=== PATIENT | female | born 1945 | race American Indian/Alaskan Native ===

== ENCOUNTER 2017-03-28 18:06 | Observation (INO) | payer OTHER ==
[2017-03-28] MEDS ORDERED: NITRO-BID 2% TP ONE (20:28)
[2017-03-28] MEDS ORDERED: NACL 0.9% 1000 ML 1,000 ML IV ONE (20:30)
[2017-03-28 20:40] LABS: Basophils # (Auto) 0.1 K/mm3 (0.0-0.1); Basophils % (Auto) 1.1 % (0.0-1.8); Eosinophils # (Auto) 0.1 K/mm3 (0.0-0.4); Eosinophils % (Auto) 2.7 % (0.0-4.3); Hemoglobin 11.1 gm/dl (10.1-14.3); Lymphocytes # (Auto) 2.4 K/mm3 (1.2-5.4); Lymphocytes % (Auto) 49.3 % (13.4-35.0); Mean Corpuscular HGB Conc 34 % (30-34); Mean Corpuscular Hemoglobin 32 pg (28-32); Mean Corpuscular Volume 94 fl (79-97); Monocytes # (Auto) 0.4 K/mm3 (0.0-0.8); Monocytes % (Auto) 7.4 % (0.0-7.3); Platelet Count 181 K/mm3 (140-440); Red Blood Count 3.53 M/mm3 (3.65-5.03); Red Cell Distribution Width 15.4 % (13.2-15.2)
--- NOTE | 2017-03-28 20:53 | Emergency Department Report ---
ED Chest Pain HPI - General Chief Complaint: Chest Pain Stated Complaint: CHEST PAIN Time Seen by Provider: 03/28/17 20:24 Source: EMS Mode of arrival: Stretcher Limitations: No Limitations - History of Present Illness Initial Comments: 71YO FEMALE WITH C/O RETROSTERNAL CHEST PAIN THAT BEGAN TODAY AFTER SHE HEARD THAT HER SISITER HAD BEEN FOUND . SHE HAD 10/10 PAIN ASSOCIATED WITH NO OTHER SYMPTOMS.DENIES N/V/RADIATION TO BACK OR ARMS MD Complaint: chest pain Onset: during rest Pain Location: substernal Pain Radiation: none - Related Data Allergies Allergy/AdvReac Type Severity Reaction Status Date / Time atorvastatin Allergy Anaphylaxis Verified 03/28/17 19:44 buspirone Allergy Anaphylaxis Verified 03/28/17 19:44 losartan Allergy Anaphylaxis Verified 03/28/17 19:44 naproxen Allergy Anaphylaxis Verified 03/28/17 19:44 Penicillins Allergy Anaphylaxis Verified 03/28/17 19:42 clopidogrel [From Plavix] AdvReac Anaphylaxis Verified 03/28/17 19:44 Heart Score - HEART Score History: Moderately suspicious EKG: Non-specific Age: > 65 Risk factors: > 3 risk factors or hx of atherosclerotic disease Troponin: < normal limit HEART Score: 6 ED Review of Systems ROS: Stated complaint: CHEST PAIN Other details as noted in HPI ED Past Medical Hx - Past Medical History Previous Medical History?: Yes Hx Hypertension: Yes Hx Diabetes: Yes Additional medical history: Stent X3 - Surgical History Past Surgical History?: Yes Additional Surgical History: Stent placement ED Physical Exam - General Limitations: No Limitations ED Course Vital Signs 03/28/17 03/28/17 03/28/17 19:02 19:15 19:30 Temperature Pulse Rate 63 Respiratory 11 L Rate Blood Pressure 122/68 O2 Sat by Pulse 100 99 100 Oximetry 03/28/17 03/28/17 03/28/17 19:36 19:38 19:40 Temperature 98 F Pulse Rate 62 60 61 Respiratory 11 L 10 L 8 L Rate Blood Pressure 187/70 187/70 187/70 O2 Sat by Pulse 100 99 99 Oximetry 03/28/17 03/28/17 03/28/17 19:42 19:44 19:45 Temperature Pulse Rate 62 59 L 60 Respiratory 10 L 12 11 L Rate Blood Pressure 187/70 187/70 173/65 O2 Sat by Pulse 99 100 99 Oximetry 1203/28/17 03/28/17 19:46 19:48 19:50 Temperature Pulse Rate 59 L 62 59 L Respiratory 9 L 9 L 10 L Rate Blood Pressure 173/65 173/65 173/65 O2 Sat by Pulse 99 99 99 Oximetry 03/28/17 03/28/17 03/28/17 19:52 19:54 19:56 Temperature Pulse Rate 59 L 59 L 59 L Respiratory 8 L 10 L 15 Rate Blood Pressure 173/65 173/65 173/65 O2 Sat by Pulse 99 99 99 Oximetry 03/28/17 03/28/17 03/28/17 19:58 20:00 20:02 Temperature Pulse Rate 62 63 61 Respiratory 18 13 14 Rate Blood Pressure 173/65 173/65 191/73 O2 Sat by Pulse 99 99 99 Oximetry 03/28/17 03/28/17 03/28/17 20:04 20:06 20:08 Temperature Pulse Rate 62 61 61 Respiratory 9 L 10 L 11 L Rate Blood Pressure 191/73 191/73 191/73 O2 Sat by Pulse 99 99 98 Oximetry 03/28/17 03/28/17 03/28/17 20:10 20:12 20:14 Temperature Pulse Rate 63 61 61 Respiratory 12 14 13 Rate Blood Pressure 191/73 191/73 191/73 O2 Sat by Pulse 98 98 99 Oximetry 03/28/17 03/28/17 03/28/17 20:15 20:16 20:18 Temperature Pulse Rate 66 63 63 Respiratory 12 11 L 12 Rate Blood Pressure 197/77 197/77 197/77 O2 Sat by Pulse 97 98 99 Oximetry 03/28/17 03/28/17 03/28/17 20:20 20:22 20:24 Temperature Pulse Rate 65 62 62 Respiratory 18 13 12 Rate Blood Pressure 197/77 197/77 197/77 O2 Sat by Pulse 100 99 98 Oximetry 03/28/17 03/28/17 03/28/17 20:26 20:28 20:30 Temperature Pulse Rate 60 59 L 60 Respiratory 15 13 11 L Rate Blood Pressure 197/77 197/77 197/77 O2 Sat by Pulse 98 98 98 Oximetry 03/28/17 03/28/17 03/28/17 20:32 20:34 20:36 Temperature Pulse Rate 61 61 61 Respiratory 9 L 11 L 13 Rate Blood Pressure 188/69 188/69 188/69 O2 Sat by Pulse 98 98 98 Oximetry 03/28/17 03/28/17 03/28/17 20:38 20:40 20:42 Temperature Pulse Rate 61 60 59 L Respiratory 12 9 L 12 Rate Blood Pressure 188/69 188/69 188/69 O2 Sat by Pulse 98 98 98 Oximetry 03/28/17 03/28/17 03/28/17 20:44 20:45 20:46 Temperature Pulse Rate 61 59 L 60 Respiratory 10 L 13 13 Rate Blood Pressure 188/69 178/67 178/67 O2 Sat by Pulse 98 96 97 Oximetry 03/28/17 03/28/17 03/28/17 20:48 20:50 20:52 Temperature Pulse Rate 62 61 62 Respiratory 13 10 L 9 L Rate Blood Pressure 178/67 178/67 178/67 O2 Sat by Pulse 98 98 98 Oximetry 03/28/17 03/28/17 03/28/17 20:57 21:13 21:43 Temperature Pulse Rate 62 Respiratory 18 18 18 Rate Blood Pressure 178/67 O2 Sat by Pulse 98 Oximetry 03/28/17 03/28/17 03/28/17 22:51 22:53 22:55 Temperature Pulse Rate 61 62 60 Respiratory 12 12 12 Rate Blood Pressure 179/67 179/67 179/67 O2 Sat by Pulse 97 98 98 Oximetry 03/28/17 03/28/17 03/28/17 22:57 22:59 23:00 Temperature Pulse Rate 60 62 63 Respiratory 12 10 L 14 Rate Blood Pressure 179/67 179/67 174/60 O2 Sat by Pulse 98 98 98 Oximetry 03/28/17 03/28/17 03/28/17 23:01 23:03 23:05 Temperature Pulse Rate 61 61 62 Respiratory 13 9 L 13 Rate Blood Pressure 174/60 189/74 189/74 O2 Sat by Pulse 98 98 97 Oximetry 03/28/17 03/28/17 03/28/17 23:07 23:09 23:11 Temperature Pulse Rate 60 58 L 59 L Respiratory 12 10 L 10 L Rate Blood Pressure 189/74 189/74 189/74 O2 Sat by Pulse 98 98 98 Oximetry 03/28/17 03/28/17 03/28/17 23:13 23:15 23:17 Temperature Pulse Rate 61 59 L 61 Respiratory 13 14 12 Rate Blood Pressure 189/74 164/55 164/55 O2 Sat by Pulse 98 96 98 Oximetry 03/28/17 03/28/17 03/28/17 23:19 23:21 23:23 Temperature Pulse Rate 59 L 59 L 60 Respiratory 12 16 10 L Rate Blood Pressure 164/55 164/55 164/55 O2 Sat by Pulse 98 97 98 Oximetry 03/28/17 03/28/17 03/28/17 23:25 23:27 23:29 Temperature Pulse Rate 59 L 59 L 59 L Respiratory 11 L 14 13 Rate Blood Pressure 164/55 164/55 164/55 O2 Sat by Pulse 98 98 98 Oximetry 03/28/17 03/28/17 03/28/17 23:31 23:33 23:35 Temperature Pulse Rate 59 L 61 68 Respiratory 12 12 14 Rate Blood Pressure 178/66 178/66 178/66 O2 Sat by Pulse 97 98 98 Oximetry 03/28/17 03/28/17 03/28/17 23:37 23:39 23:41 Temperature Pulse Rate 65 64 66 Respiratory 15 14 12 Rate Blood Pressure 178/66 178/66 178/66 O2 Sat by Pulse 98 98 98 Oximetry 03/28/17 03/28/17 03/28/17 23:43 23:45 23:47 Temperature Pulse Rate 71 69 66 Respiratory 16 10 L 11 L Rate Blood Pressure 178/66 196/80 196/80 O2 Sat by Pulse 99 96 97 Oximetry 03/28/17 03/28/17 03/28/17 23:49 23:51 23:53 Temperature Pulse Rate 64 63 64 Respiratory 11 L 9 L 8 L Rate Blood Pressure 196/80 196/80 196/80 O2 Sat by Pulse 97 98 98 Oximetry 03/28/17 03/28/17 03/28/17 23:55 23:57 23:59 Temperature Pulse Rate 64 65 65 Respiratory 10 L 10 L 11 L Rate Blood Pressure 196/80 196/80 196/80 O2 Sat by Pulse 98 97 97 Oximetry 03/29/17 03/29/17 03/29/17 00:00 00:01 00:03 Temperature Pulse Rate 65 63 64 Respiratory 12 11 L 12 Rate Blood Pressure 188/81 188/81 188/81 O2 Sat by Pulse 94 98 97 Oximetry 03/29/17 03/29/17 03/29/17 00:05 00:07 00:09 Temperature Pulse Rate 62 62 62 Respiratory 11 L 13 13 Rate Blood Pressure 188/81 188/81 188/81 O2 Sat by Pulse 98 98 98 Oximetry 03/29/17 03/29/17 03/29/17 00:11 00:13 00:15 Temperature Pulse Rate 66 69 65 Respiratory 12 12 13 Rate Blood Pressure 188/81 188/81 194/85 O2 Sat by Pulse 98 98 96 Oximetry 03/29/17 03/29/17 03/29/17 00:17 00:19 00:21 Temperature Pulse Rate 63 63 63 Respiratory 12 10 L 12 Rate Blood Pressure 194/85 194/85 194/85 O2 Sat by Pulse 97 97 97 Oximetry 03/29/17 03/29/17 00:23 00:25 Temperature Pulse Rate 68 65 Respiratory 13 13 Rate Blood Pressure 194/85 194/85 O2 Sat by Pulse 99 98 Oximetry - Reevaluation(s) Reevaluation #1: 03/29/17 00:39 PT WITH HEADACEH EVEN AFTER TORADOL. RESULTS DISCUSSED AND MORPHINE GIVEN. WAS WAITING FOR THE HOSPITALIST TO WRITE ADMISSION ORDERS. GREGORIO score - Gregorio Score Age > 65: (1) Yes Aspirin use within the Past 7 Days: (1) Yes 3 or more CAD Risk Factors: (1) Yes 2 or more Angina events in past 24 hrs: (0) No Known CAD with more than 50% Stenosis: (0) No Elevated Cardiac Markers: (0) No ST Deviation Greater than 0.5mm: (0) No GREGORIO Score: 3 ED Medical Decision Making - Lab Data Result diagrams: 03/28/17 20:02 03/28/17 20:02 - EKG Data -: EKG Interpreted by Me EKG shows normal: sinus rhythm, axis, intervals, QRS complexes, ST-T waves Rate: normal (65) - EKG Data Interpretation: LVH (LAEFT ATRIAL ENLARGEMENT) - Radiology Data Radiology results: report reviewed, image reviewed (CXR; NEGATIVE) Critical care time in (mins) excluding proc time.: 30 Critical care attestation.: If time is entered above; I have spent that time in minutes in the direct care of this critically ill patient, excluding procedure time. [facility] ED Disposition Clinical Impression: Unstable angina, Uncontrolled hypertension Disposition: DC- OP ADMIT IP TO THIS HOSP Is pt being admited?: Yes Does the pt Need Aspirin: No Condition: Serious Instructions: Angina (ED), Hypertension (ED) Referrals: DICRISTINA,PADMA, MD [Primary Care Provider] - 3-5 Days Time of Disposition: 00:40 (DR MEADOWS PAGED AND SHE WILL ADMIT THE PT TO THE HOSPITAL)
[2017-03-28] MEDS ORDERED: TORADOL ONE (21:06)
[2017-03-28] MEDS ORDERED: TORADOL IV ONE (21:09)
--- NOTE | 2017-03-28 21:13 | XRay Report ---
FINAL REPORT PROCEDURE: XR CHEST 1V AP TECHNIQUE: Chest radiograph anteroposterior view. CPT 22477 HISTORY: Chest Pain COMPARISON: No prior studies are available for comparison. FINDINGS: Heart: Normal. Mediastinum/Vessels: Normal. Lungs/Pleural space: No infiltrate, effusion, or pneumothorax. Bony thorax: No acute osseous abnormality. Life support devices: None. IMPRESSION: No radiographic evidence of acute cardiopulmonary abnormality.
[2017-03-28 21:54] LABS: Albumin 3.5 g/dL (3.9-5)
[2017-03-28] MEDS ORDERED: MORPHINE IV ONE (23:03)
[2017-03-28] MEDS ORDERED: ZOFRAN IV ONE (23:04)
[2017-03-29] MEDS ORDERED: AMBIEN PO PRN (01:08)
[2017-03-29] MEDS ORDERED: ZOFRAN IV PRN (01:08)
[2017-03-29] MEDS ORDERED: TYLENOL PO PRN (01:08)
[2017-03-29] MEDS ORDERED: SODIUM CHLORIDE FLUSH SYRINGE 10 ML IV PRN (01:08)
[2017-03-29] MEDS ORDERED: NITROSTAT SL PRN (01:08)
[2017-03-29] MEDS ORDERED: PROVENTIL IH PRN (01:08)
[2017-03-29] MEDS ORDERED: MILK OF MAGNESIA PO PRN (01:08)
[2017-03-29] MEDS ORDERED: DULCOLAX PR PRN (01:08)
--- NOTE | 2017-03-29 01:18 | History and Physical Report ---
History of Present Illness Date of examination: 03/29/17 Chief complaint: chest pain History of present illness: 71YO FEMALE WITH C/O RETROSTERNAL CHEST PAIN THAT BEGAN TODAY AFTER SHE HEARD THAT HER SISTER HAD BEEN FOUND . SHE HAD 10/10 PAIN ASSOCIATED WITH NO OTHER SYMPTOMS.DENIES N/V/RADIATION TO BACK OR ARMS She has coronary artery disease status post PCI 3 times. Follows with her [place] fixed route operator last visit with her fixed route operator was in November 2016 and everything was okay at that time. She denies any left heart catheterization echocardiogram or stress test since 2014. She denies any headache nausea vomiting tingling numbness on weakness. Denies any shortness of breath or palpitations no other GI or symptoms. Past History Past Medical History: CAD, hypertension Past Surgical History: Other (PCI) Social history: lives with family, full code. denies: smoking, alcohol abuse Family history: no significant family history Medications and Allergies Allergies Allergy/AdvReac Type Severity Reaction Status Date / Time atorvastatin Allergy Anaphylaxis Verified 03/28/17 19:44 buspirone Allergy Anaphylaxis Verified 03/28/17 19:44 losartan Allergy Anaphylaxis Verified 03/28/17 19:44 naproxen Allergy Anaphylaxis Verified 03/28/17 19:44 Penicillins Allergy Anaphylaxis Verified 03/28/17 19:42 clopidogrel [From Plavix] AdvReac Anaphylaxis Verified 03/28/17 19:44 Active Meds: Active Medications Acetaminophen (Tylenol) 650 mg PO Q4H PRN PRN Reason: Pain MILD(1-3)/Fever >100.5/GONZALEZ Albuterol (Proventil) 2.5 mg IH Q4HRT PRN PRN Reason: Shortness Of Breath Aspirin (Ecotrin) 325 mg PO QDAY BRYANT Bisacodyl (Dulcolax) 10 mg CO QDAY PRN PRN Reason: Constipation unrelieved by MOM Enoxaparin Sodium (Lovenox) 40 mg SUB-Q QDAY BRYANT Famotidine (Pepcid) 20 mg PO BID BRYANT Sodium Chloride (Nacl 0.45% 1000 Ml) 1,000 mls @ 75 mls/hr IV DIRECT BRYANT Magnesium Hydroxide (Milk Of Magnesia) 30 ml PO Q4H PRN PRN Reason: Constipation Nitroglycerin (Nitrostat) 0.4 mg SL Q5M PRN PRN Reason: Chest Pain Ondansetron HCl (Zofran) 4 mg IV Q8H PRN PRN Reason: N/V unrelieved by Reglan Oxycodone/Acetaminophen (Percocet 5/325) 1 tab PO Q6H PRN PRN Reason: Pain, Moderate (4-6) Sodium Chloride (Sodium Chloride Flush Syringe 10 Ml) 10 ml IV PRN PRN PRN Reason: LINE FLUSH Zolpidem Tartrate (Ambien) 5 mg PO QHS PRN PRN Reason: Insomnia Review of Systems All systems: negative Exam - Physical Exam Narrative exam: General: the patient is awake alert oriented to time place and person. no evidence of acute distress HEENT: Head is atraumatic normocephalic,. Pupils equal round reactive to light and accommodation, extraocular movements intact. Oral mucosa moist. Oropharynx clear. No pharyngeal erythema or tonsillar exudate. Neck: Supple no JVD no thyromegaly or lymphadenopathy. Heart: Regular rate and rhythm no murmurs or gallops. S1 and S2 normal. PMI not displaced. Lungs: Clear to auscultation bilaterally. No rales rhonchi wheezing. Nonlabored breathing. Normal chest wall expansion. Abdomen: Soft, nondistended, and nontender. Normoactive bowel sounds. No hepatosplenomegaly. No abdominal masses or bruit appreciated. Extremities: No cyanosis/clubbing/ edema. Musculoskeletal: Normal range of movement all joints. No obvious deformity or tenderness to palpation. Normal muscle tone. Back: Normal alignment. No step-off. No midline or paraspinal tenderness. No CVA tenderness. Neurological: Grossly intact and nonfocal. No cerebellar signs. Cranial nerves II-12 grossly intact. Strength 5 out of 5 all 4 extremities. Sensations grossly intact. Skin: Warm and dry no rashes or bruises. Psychiatric: Normal mood. Appropriate affect and good insight and judgment. Vascular system: No lymphadenopathy. Distal pulses 2+ bilaterally. - Constitutional Vitals: Temp Pulse Resp BP Pulse Ox 98 F 65 13 194/85 98 03/28/17 19:38 03/29/17 00:25 03/29/17 00:25 03/29/17 00:25 03/29/17 00:25 Results - Labs CBC & Chem 7: 03/28/17 20:02 03/28/17 20:02 Labs: Laboratory Last Values WBC 4.9 K/mm3 (4.5-11.0) 03/28/17 20:02 RBC 3.53 M/mm3 (3.65-5.03) L 03/28/17 20:02 Hgb 11.1 gm/dl (10.1-14.3) 03/28/17 20:02 Hct 33.0 % (30.3-42.9) 03/28/17 20:02 MCV 94 fl (79-97) 03/28/17 20:02 MCH 32 pg (28-32) 03/28/17 20:02 MCHC 34 % (30-34) 03/28/17 20:02 RDW 15.4 % (13.2-15.2) H 03/28/17 20:02 Plt Count 181 K/mm3 (140-440) 03/28/17 20:02 Lymph % (Auto) 49.3 % (13.4-35.0) H 03/28/17 20:02 [place] % (Auto) 7.4 % (0.0-7.3) H 03/28/17 20:02 Eos % (Auto) 2.7 % (0.0-4.3) 03/28/17 20:02 Baso % (Auto) 1.1 % (0.0-1.8) 03/28/17 20:02 Lymph # 2.4 K/mm3 (1.2-5.4) 03/28/17 20:02 [place] # 0.4 K/mm3 (0.0-0.8) 03/28/17 20:02 Eos # 0.1 K/mm3 (0.0-0.4) 03/28/17 20:02 Baso # 0.1 K/mm3 (0.0-0.1) 03/28/17 20:02 Seg Neutrophils % 39.5 % (40.0-70.0) L 03/28/17 20:02 Seg Neutrophils # 1.9 K/mm3 (1.8-7.7) 03/28/17 20:02 Sodium 145 mmol/L (137-145) 03/28/17 20:02 Potassium 4.5 mmol/L (3.6-5.0) 03/28/17 20:02 Chloride 106.0 mmol/L (98-107) 03/28/17 20:02 Carbon Dioxide 27 mmol/L (22-30) 03/28/17 20:02 Anion Gap 17 mmol/L 03/28/17 20:02 BUN 18 mg/dL (7-17) H 03/28/17 20:02 Creatinine 1.3 mg/dL (0.7-1.2) H 03/28/17 20:02 Estimated GFR 49 ml/min 03/28/17 20:02 BUN/Creatinine Ratio 14 % 03/28/17 20:02 Glucose 96 mg/dL (65-100) 03/28/17 20:02 Calcium 9.0 mg/dL (8.4-10.2) 03/28/17 20:02 Total Bilirubin 0.20 mg/dL (0.1-1.2) 03/28/17 20:02 AST 16 units/L (5-40) 03/28/17 20:02 ALT 8 units/L (7-56) 03/28/17 20:02 Alkaline Phosphatase 48 units/L (35-129) 03/28/17 20:02 Total Creatine Kinase 50 units/L (30-135) 03/28/17 20:02 CK-MB (CK-2) 1.0 ng/mL (0.0-4.0) 03/28/17 20:02 CK-MB (CK-2) Rel Index 2.0 (0-4) 03/28/17 20:02 Troponin T < 0.010 ng/mL (0.00-0.029) 03/28/17 20:02 Total Protein 6.0 g/dL (6.3-8.2) L 03/28/17 20:02 Albumin 3.5 g/dL (3.9-5) L 03/28/17 20:02 Albumin/Globulin Ratio 1.4 % 03/28/17 20:02 - Imaging and Cardiology Imaging and Cardiology: EKG showing normal sinus rhythm. Positive T waves. Nonspecific ST-T wave changes but negative for acute ischemia or other arrhythmia Assessment and Plan Assessment and plan: Assessment and plan - * Chest pain * Malignant hypertension * Coronary artery disease status post PCI * CKD stage III - Baseline creatinine unknown Plan - Admitted to medical floor with telemetry for 24-hour observation Serial cardiac enzymes Cardiology consultation in a.m. for further evaluation and management recommendations Patient's home medications unknown at present, we will start her on low-dose beta edward in view of her borderline low heart rate. Give when necessary hydralazine. We will also start her on low-dose lisinopril. Monitor blood pressures closely IV fluids Monitor renal function with IV fluids avoid all nephrotoxins and NSAIDs renally dose all medications Monitor CBC and electrolytes replace electrolytes when necessary as per protocol DVT GI prophylaxis as ordered monitor and follow the patient closely VTE prophylaxis?: Chemical, Mechanical Plan of care discussed with patient/family: Yes
[2017-03-29 01:37] LABS: Hematocrit 32.9 % (30.3-42.9); Mean Corpuscular HGB Conc 33 % (30-34); Mean Corpuscular Hemoglobin 31 pg (28-32); Mean Corpuscular Volume 94 fl (79-97); Platelet Count 172 K/mm3 (140-440); Red Blood Count 3.52 M/mm3 (3.65-5.03); Red Cell Distribution Width 15.3 % (13.2-15.2)
[2017-03-29 01:53] LABS: Calcium 8.6 mg/dL (8.4-10.2)
[2017-03-29] MEDS ORDERED: NACL 0.45% 1000 ML 1,000 ML IV SCH (02:00)
[2017-03-29] MEDS ORDERED: APRESOLINE ONE (02:39)
[2017-03-29] MEDS ORDERED: AMBIEN ONE (02:39)
[2017-03-29 02:41] LABS: Basophils % (Manual) 0 % (0.0-1.8); Platelet Estimate Consistent w Auto; RBC Morphology Normal; Total Cells Counted 100
[2017-03-29] MEDS: APRESOLINE IV PRN ×2 (02:41→08:38)
[2017-03-29 02:43] LABS: Chol/HDL Ratio 3.04 %
[2017-03-29] MEDS: PERCOCET 5/325 PO PRN ×3 (04:34→22:11)
[2017-03-29 06:04] LABS: Creatine Kinase MB 1.1 ng/mL (0.0-4.0)
[2017-03-29] MEDS: LOVENOX SUB-Q SCH (09:23)
[2017-03-29] MEDS: PEPCID PO SCH (09:24)
[2017-03-29] MEDS ORDERED: ZESTRIL PO SCH (10:00)
[2017-03-29] MEDS ORDERED: LOPRESSOR PO SCH (10:00)
[2017-03-29] MEDS ORDERED: PNEUMOVAX 23 IM ONE (12:00)
[2017-03-29] MEDS ORDERED: APRESOLINE IV PRN (13:07)
--- NOTE | 2017-03-29 13:07 | Event Note ---
Date: 03/29/17 Admitted today [place] patient h/o of CAD and multp pci Here with chest pains CXR; naf normal troponins Severe accelerated hypertension: Home medications are reconciled, add IV hydralazine prn Substernal chest pain was reproducible with touch Chest pain did not feel like prior coronary artery disease with stents, patient denies ever having a heart attack, she is diabetic await Cardiology evaluation
[2017-03-29] MEDS ORDERED: NON-FORMULARY (Metoprolol 100 MG) PO SCH (13:15)
[2017-03-29] MEDS ORDERED: NON-FORMULARY (Ranolazine [Ranexa] 1,000 MG) PO SCH (13:15)
[2017-03-29] MEDS: IMDUR PO SCH (15:01)
[2017-03-29] MEDS: RANEXA ER PO SCH (15:03)
[2017-03-29] MEDS: TOPROL XL PO SCH (15:03)
[2017-03-29] MEDS: APRESOLINE PO SCH ×2 (15:04→22:10)
[2017-03-29] MEDS: PROzac PO SCH (15:04)
[2017-03-29] MEDS: PROTONIX PO SCH (15:05)
--- NOTE | 2017-03-29 16:09 | Event Note ---
Date: 03/29/17 Cardiology consult dictated #1 chest pain suggestive of angina #2 coronary artery disease #3 hypertension Patient is known to have coronary artery disease and now presents with significant chest pain when she continues of her sister's . Cardiac examination is stable. EKG shows no acute abnormalities. Cardiac enzymes are noted to be negative. Plan is to obtain a echo and nuclear stress test for further evaluation. Monitor the blood pressure closely. Thank you for me to participate in the care of this pleasant lady Dr. CINTIA Talley
[2017-03-29] MEDS: PRAVACHOL PO SCH (22:10)
[2017-03-30 05:35] LABS: Basophils # (Auto) 0.1 K/mm3 (0.0-0.1); Basophils % (Auto) 1.3 % (0.0-1.8); Eosinophils # (Auto) 0.1 K/mm3 (0.0-0.4); Hematocrit 35.7 % (30.3-42.9); Hemoglobin 11.8 gm/dl (10.1-14.3); Lymphocytes # (Auto) 1.7 K/mm3 (1.2-5.4); Lymphocytes % (Auto) 40.3 % (13.4-35.0); Mean Corpuscular HGB Conc 33 % (30-34); Mean Corpuscular Hemoglobin 31 pg (28-32); Mean Corpuscular Volume 94 fl (79-97); Monocytes # (Auto) 0.4 K/mm3 (0.0-0.8); Monocytes % (Auto) 8.9 % (0.0-7.3); Platelet Count 179 K/mm3 (140-440); Red Blood Count 3.81 M/mm3 (3.65-5.03); Red Cell Distribution Width 15.7 % (13.2-15.2)
[2017-03-30 05:54] LABS: Albumin 3.3 g/dL (3.9-5); Calcium 8.9 mg/dL (8.4-10.2); Magnesium 1.4 mg/dL (1.7-2.3)
[2017-03-30] MEDS ORDERED: LEXISCAN IV ONE ×2 (08:10→08:25)
[2017-03-30] MEDS: APRESOLINE PO SCH ×3 (08:50→20:30)
[2017-03-30] MEDS ORDERED: FERROUS SULFATE PO SCH (10:00)
[2017-03-30] MEDS ORDERED: DHA PO SCH (10:00)
[2017-03-30] MEDS ORDERED: FISH OIL PO SCH (10:00)
[2017-03-30] MEDS ORDERED: CALTRATE PO SCH (10:00)
[2017-03-30] MEDS ORDERED: OMEGA PO SCH (10:00)
[2017-03-30] MEDS ORDERED: ECOTRIN PO SCH (10:00)
[2017-03-30] MEDS ORDERED: EPA PO SCH (10:00)
[2017-03-30] MEDS ORDERED: D3 PO SCH (10:00)
--- NOTE | 2017-03-30 13:11 | Progress Note ---
Assessment and Plan Patient is known to have coronary artery disease and had previous stent placement. She is admitted with chest discomfort and the uncontrolled hypertension. Chest pain has improved. Patient underwent a nuclear stress test today which showed normal left ventricular function and there is no evidence of ischemia. Blood pressure is not well controlled yet. I have added Norvasc 10 mg daily this dose may need to be reduced tomorrow. Overall cardiac- rene she is doing reasonably well. Continue current management. - Patient Problems (1) Uncontrolled hypertension Current Visit: Yes Status: Acute (2) Unstable angina Current Visit: Yes Status: Acute Subjective Date of service: 03/30/17 Interval history: Patient is feeling better today. No significant chest pain or difficulty breathing. Patient to have nuclear stress test and echo today. Objective Vital Signs Temp Pulse Pulse Resp BP BP Pulse Ox 03/30/17 10:39 100 H 217/91 03/30/17 10:38 102 H 200/76 03/30/17 10:37 104 H 197/83 03/30/17 10:36 99 H 181/75 03/30/17 10:35 106 H 166/72 03/30/17 10:34 93 H 190/69 03/30/17 10:27 73 191/72 03/30/17 08:00 98.4 F 69 20 200/81 96 03/30/17 04:00 18 03/30/17 01:10 98.6 F 66 18 162/60 03/29/17 22:00 66 03/29/17 17:34 86 136/104 03/29/17 16:50 60 16 03/29/17 15:03 60 183/61 03/29/17 15:01 60 183/61 - Physical Examination General: Appears Well HEENT: Positive: PERRL Neck: Positive: neck supple Cardiac: Positive: Reg Rate and Rhythm, Other (grade 1-2/6 soft systolic murmur is present.) Lungs: Positive: clear to auscultation Neuro: Positive: Grossly Intact Skin: Positive: Clear Extremities: Present: normal - Labs and Meds Cardiac Enzymes 03/29/17 03/29/17 03/30/17 Range/Units 12:29 20:59 05:11 AST 14 (5-40) units/L CK-MB (CK-2) 1.0 1.0 (0.0-4.0) ng/mL CBC 03/30/17 Range/Units 05:11 WBC 4.3 L (4.5-11.0) K/mm3 RBC 3.81 (3.65-5.03) M/mm3 Hgb 11.8 (10.1-14.3) gm/dl Hct 35.7 (30.3-42.9) % Plt Count 179 (140-440) K/mm3 Lymph # 1.7 (1.2-5.4) K/mm3 [place] # 0.4 (0.0-0.8) K/mm3 Eos # 0.1 (0.0-0.4) K/mm3 Baso # 0.1 (0.0-0.1) K/mm3 Comprehensive Metabolic Panel 03/30/17 Range/Units 05:11 Sodium 142 (137-145) mmol/L Potassium 4.4 (3.6-5.0) mmol/L Chloride 104.4 (98-107) mmol/L Carbon Dioxide 26 (22-30) mmol/L BUN 16 (7-17) mg/dL Creatinine 1.3 H (0.7-1.2) mg/dL Glucose 96 (65-100) mg/dL Calcium 8.9 (8.4-10.2) mg/dL AST 14 (5-40) units/L ALT 7 (7-56) units/L Alkaline Phosphatase 50 (35-129) units/L Total Protein 6.2 L (6.3-8.2) g/dL Albumin 3.3 L (3.9-5) g/dL
[2017-03-30] MEDS: ECOTRIN PO SCH (13:58)
[2017-03-30] MEDS: LOVENOX SUB-Q SCH (13:58)
[2017-03-30] MEDS: Renal Caps PO SCH (13:58)
[2017-03-30] MEDS: CALTRATE PLUS PO SCH (13:59)
[2017-03-30] MEDS: PEPCID PO SCH (13:59)
[2017-03-30] MEDS: PROzac PO SCH (13:59)
[2017-03-30] MEDS: RANEXA ER PO SCH (13:59)
[2017-03-30] MEDS: PROTONIX PO SCH (13:59)
[2017-03-30] MEDS: ZESTRIL PO SCH (14:00)
[2017-03-30] MEDS: TOPROL XL PO SCH (14:00)
[2017-03-30] MEDS: IMDUR PO SCH (14:01)
--- NOTE | 2017-03-30 15:10 | Progress Note ---
Assessment and Plan Assessment and plan: Patient is a 71-year-old woman with history of coronary artery disease status post stent, CKD3 and hypertension who presented with chest pain. -Chest pain, most likely stable angina: Cardiology is following -Accelerated hypertension: Cardiology added Norvasc, prn hydralazine iv -Hypomagnesemia: replace -CKD 3, stable Hopefully discharge tomorrow if cleared by Cardiology History Interval history: Patient was seen and examined. Follow-up on current diagnosis. Overnight uneventful. Patient denies any chest pain, shortness breath, nausea/vomiting or severe headaches. Imaging, nursing note, chart, labs and old chart reviewed. Discussed with patient. Hospitalist Physical - Physical exam Narrative exam: GEN: WDWN, NAD, AWAKE, ALERT, ORIENTATED 3 HEENT: NCAT, EOMI, PERRL, OP Clear NECK: supple, no adenopathy, no thyromegaly, no JVD CVS/HEART: RRR, NORMAL S1S2, NO JVD, pulses present bilaterally CHEST/LUNGS: CTA B, Symmetrical chest expansion, good air entry bilaterally GI/Abdomen: soft, NTND, good bowel sounds, no guarding or rebound /Bladder: no suprapubic tenderness, no CVA or paraspinal tenderness EXT/Skin: no c/c/e, no obvious rash MSK: FROM x 4 Neuro: CN 2-12 grossly intact, no new focal deficits Psych: calm - Constitutional Vitals: Temp Pulse Resp BP Pulse Ox 97.8 F 92 H 18 171/68 98 03/30/17 13:48 03/30/17 14:01 03/30/17 13:48 03/30/17 14:01 03/30/17 13:48 Results - Labs CBC & Chem 7: 03/30/17 05:11 03/30/17 05:11 Labs: Laboratory Last Values WBC 4.3 K/mm3 (4.5-11.0) L 03/30/17 05:11 RBC 3.81 M/mm3 (3.65-5.03) 03/30/17 05:11 Hgb 11.8 gm/dl (10.1-14.3) 03/30/17 05:11 Hct 35.7 % (30.3-42.9) 03/30/17 05:11 MCV 94 fl (79-97) 03/30/17 05:11 MCH 31 pg (28-32) 03/30/17 05:11 MCHC 33 % (30-34) 03/30/17 05:11 RDW 15.7 % (13.2-15.2) H 03/30/17 05:11 Plt Count 179 K/mm3 (140-440) 03/30/17 05:11 Lymph % (Auto) 40.3 % (13.4-35.0) H 03/30/17 05:11 Mcleod % (Auto) 8.9 % (0.0-7.3) H 03/30/17 05:11 Eos % (Auto) 2.0 % (0.0-4.3) 03/30/17 05:11 Baso % (Auto) 1.3 % (0.0-1.8) 03/30/17 05:11 Lymph # 1.7 K/mm3 (1.2-5.4) 03/30/17 05:11 Mcleod # 0.4 K/mm3 (0.0-0.8) 03/30/17 05:11 Eos # 0.1 K/mm3 (0.0-0.4) 03/30/17 05:11 Baso # 0.1 K/mm3 (0.0-0.1) 03/30/17 05:11 Add Manual Diff Complete 03/29/17 01:22 Total Counted 100 03/29/17 01:22 Seg Neutrophils % 47.5 % (40.0-70.0) 03/30/17 05:11 Seg Neuts % (Manual) 40.0 % (40.0-70.0) 03/29/17 01:22 Band Neutrophils % 0 % 03/29/17 01:22 Lymphocytes % (Manual) 50.0 % (13.4-35.0) H 03/29/17 01:22 Reactive Lymphs % (Man) 1.0 % 03/29/17 01:22 Monocytes % (Manual) 7.0 % (0.0-7.3) 03/29/17 01:22 Eosinophils % (Manual) 2.0 % (0.0-4.3) 03/29/17 01:22 Basophils % (Manual) 0 % (0.0-1.8) 03/29/17 01:22 Metamyelocytes % 0 % 03/29/17 01:22 Myelocytes % 0 % 03/29/17 01:22 Promyelocytes % 0 % 03/29/17 01:22 Blast Cells % 0 % 03/29/17 01:22 Nucleated RBC % Not Reportable 03/29/17 01:22 Seg Neutrophils # 2.0 K/mm3 (1.8-7.7) 03/30/17 05:11 Seg Neutrophils # Man 1.9 K/mm3 (1.8-7.7) 03/29/17 01:22 Band Neutrophils # 0.0 K/mm3 03/29/17 01:22 Lymphocytes # (Manual) 2.4 K/mm3 (1.2-5.4) 03/29/17 01:22 Abs React Lymphs (Man) 0.0 K/mm3 03/29/17 01:22 Monocytes # (Manual) 0.3 K/mm3 (0.0-0.8) 03/29/17 01:22 Eosinophils # (Manual) 0.1 K/mm3 (0.0-0.4) 03/29/17 01:22 Basophils # (Manual) 0.0 K/mm3 (0.0-0.1) 03/29/17 01:22 Metamyelocytes # 0.0 K/mm3 03/29/17 01:22 Myelocytes # 0.0 K/mm3 03/29/17 01:22 Promyelocytes # 0.0 K/mm3 03/29/17 01:22 Blast Cells # 0.0 K/mm3 03/29/17 01:22 WBC Morphology Not Reportable 03/29/17 01:22 Hypersegmented Neuts Not Reportable 03/29/17 01:22 Hyposegmented Neuts Not Reportable 03/29/17 01:22 Hypogranular Neuts Not Reportable 03/29/17 01:22 Smudge Cells Not Reportable 03/29/17 01:22 Toxic Granulation Not Reportable 03/29/17 01:22 Toxic Vacuolation Not Reportable 03/29/17 01:22 Dohle Bodies Not Reportable 03/29/17 01:22 Pelger-Huet Anomaly Not Reportable 03/29/17 01:22 Rahul Rods Not Reportable 03/29/17 01:22 Platelet Estimate Consistent w auto 03/29/17 01:22 Clumped Platelets Not Reportable 03/29/17 01:22 Plt Clumps, EDTA Not Reportable 03/29/17 01:22 Large Platelets Not Reportable 03/29/17 01:22 Giant Platelets Not Reportable 03/29/17 01:22 Platelet Satelliting Not Reportable 03/29/17 01:22 Plt Morphology Comment Not Reportable 03/29/17 01:22 RBC Morphology Normal 03/29/17 01:22 Dimorphic RBCs Not Reportable 03/29/17 01:22 Polychromasia Not Reportable 03/29/17 01:22 Hypochromasia Not Reportable 03/29/17 01:22 Poikilocytosis Not Reportable 03/29/17 01:22 Anisocytosis Not Reportable 03/29/17 01:22 Microcytosis Not Reportable 03/29/17 01:22 Macrocytosis Not Reportable 03/29/17 01:22 Spherocytes Not Reportable 03/29/17 01:22 Pappenheimer Bodies Not Reportable 03/29/17 01:22 Sickle Cells Not Reportable 03/29/17 01:22 Target Cells Not Reportable 03/29/17 01:22 Tear Drop Cells Not Reportable 03/29/17 01:22 Ovalocytes Not Reportable 03/29/17 01:22 Helmet Cells Not Reportable 03/29/17 01:22 Foster-Hart Bodies Not Reportable 03/29/17 01:22 Perris Rings Not Reportable 03/29/17 01:22 Johnston Cells Not Reportable 03/29/17 01:22 Bite Cells Not Reportable 03/29/17 01:22 Crenated Cell Not Reportable 03/29/17 01:22 Elliptocytes Not Reportable 03/29/17 01:22 Acanthocytes (Spur) Not Reportable 03/29/17 01:22 Rouleaux Not Reportable 03/29/17 01:22 Hemoglobin C Crystals Not Reportable 03/29/17 01:22 Schistocytes Not Reportable 03/29/17 01:22 Malaria parasites Not Reportable 03/29/17 01:22 Dimitry Bodies Not Reportable 03/29/17 01:22 Hem Pathologist Commnt No 03/29/17 01:22 Sodium 142 mmol/L (137-145) 03/30/17 05:11 Potassium 4.4 mmol/L (3.6-5.0) 03/30/17 05:11 Chloride 104.4 mmol/L (98-107) 03/30/17 05:11 Carbon Dioxide 26 mmol/L (22-30) 03/30/17 05:11 Anion Gap 16 mmol/L 03/30/17 05:11 BUN 16 mg/dL (7-17) 03/30/17 05:11 Creatinine 1.3 mg/dL (0.7-1.2) H 03/30/17 05:11 Estimated GFR 49 ml/min 03/30/17 05:11 BUN/Creatinine Ratio 12 % 03/30/17 05:11 Glucose 96 mg/dL (65-100) 03/30/17 05:11 POC Glucose 95 (70-105) 03/30/17 08:23 Hemoglobin A1c 5.0 % (4-6) 03/29/17 01:22 Calcium 8.9 mg/dL (8.4-10.2) 03/30/17 05:11 Phosphorus 3.80 mg/dL (2.5-4.5) 03/30/17 05:11 Magnesium 1.40 mg/dL (1.7-2.3) L 03/30/17 05:11 Total Bilirubin 0.30 mg/dL (0.1-1.2) 03/30/17 05:11 AST 14 units/L (5-40) 03/30/17 05:11 ALT 7 units/L (7-56) 03/30/17 05:11 Alkaline Phosphatase 50 units/L (35-129) 03/30/17 05:11 Total Creatine Kinase 41 units/L (30-135) 03/29/17 20:59 CK-MB (CK-2) 1.0 ng/mL (0.0-4.0) 03/29/17 20:59 CK-MB (CK-2) Rel Index 2.4 (0-4) 03/29/17 20:59 Troponin T < 0.010 ng/mL (0.00-0.029) 03/29/17 20:59 Total Protein 6.2 g/dL (6.3-8.2) L 03/30/17 05:11 Albumin 3.3 g/dL (3.9-5) L 03/30/17 05:11 Albumin/Globulin Ratio 1.1 % 03/30/17 05:11 Triglycerides 84 mg/dL (2-149) 03/29/17 01:22 Cholesterol 143 mg/dL (50-199) 03/29/17 01:22 LDL Cholesterol Direct 80 mg/dL (50-130) 03/29/17 01:22 HDL Cholesterol 47 mg/dL (40-59) 03/29/17 01:22 Cholesterol/HDL Ratio 3.04 % 03/29/17 01:22
[2017-03-30] MEDS: NORVASC PO SCH (15:47)
[2017-03-30] MEDS ORDERED: MAGNESIUM SULFATE 2GM/50ML 2 GM/50 ML BAG IV ONE (17:30)
[2017-03-30] MEDS: PRAVACHOL PO SCH (21:23)
[2017-03-31] MEDS: APRESOLINE PO SCH ×2 (08:07→13:56)
[2017-03-31] MEDS: LOVENOX SUB-Q SCH (08:59)
[2017-03-31] MEDS: TOPROL XL PO SCH (09:00)
[2017-03-31] MEDS: ECOTRIN PO SCH (09:00)
[2017-03-31] MEDS: NORVASC PO SCH (09:01)
[2017-03-31] MEDS: Renal Caps PO SCH (09:01)
[2017-03-31] MEDS: IMDUR PO SCH (09:01)
[2017-03-31] MEDS: RANEXA ER PO SCH (09:02)
[2017-03-31] MEDS: CALTRATE PLUS PO SCH (09:03)
[2017-03-31] MEDS: ZESTRIL PO SCH (09:03)
[2017-03-31] MEDS: PEPCID PO SCH (09:03)
[2017-03-31] MEDS: PROTONIX PO SCH (09:03)
--- NOTE | 2017-03-31 10:19 | Consultation ---
CARDIOLOGY EVALUATION HISTORY OF PRESENT ILLNESS: The patient is a 71-year-old female, who is usually followed by [facility], is seen for cardiac evaluation because of chest pain. Yesterday her 82-year-old sister was found and as soon as she heard that news, she started experiencing fairly significant heaviness in the chest and this lasted for about an hour until she was brought to the Emergency Room and received medication. Today, she is feeling significantly better. The patient is known to have hypertension and diabetes in 1998. She is known to have coronary artery disease but no previous history of myocardial infarction. She had PCI done 3 times, once in 2007 and then 2 times in 2011. The patient did not have any recent stress test. 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 REVIEW OF SYSTEMS: HEAD, EYES, EARS, NOSE AND THROAT: No symptoms. ENDOCRINE: No history of diabetes or thyroid problems. GASTROINTESTINAL: No abdominal pain, nausea, or vomiting. However, the patient is known to have had a hiatal hernia and she does take . GENITOURINARY: No symptoms at that time. The patient did have a hysterectomy in the past. CENTRAL NERVOUS SYSTEM: No history of cerebrovascular accident or convulsive disorder. LOCOMOTOR: No symptoms. HEME/ONC: No symptoms. SKIN: No symptoms. PERSONAL HISTORY: Nonsmoker, nonalcoholic. ALLERGIES: Multiple drug allergies are noted and these are documented in the chart. PAST SURGICAL HISTORY: Hysterectomy and hemorrhoidectomy. PHYSICAL EXAMINATION: GENERAL: Adult female, well built, well nourished, in no acute distress at this time. VITAL SIGNS: Blood pressure is 183/61, pulse 60, respirations 18. HEENT: Unremarkable. NECK: Supple. No thyromegaly. Both carotids are palpable and equal. No significant bruits are noted. CHEST: Symmetrical. LUNGS: Clear. CARDIOVASCULAR: S1 and S2 are heard well. No S3. No significant murmurs are appreciated. ABDOMEN: Soft, nontender. No hepatosplenomegaly. EXTREMITIES: No edema or calf tenderness. Peripheral pulses are satisfactory. LABORATORY DATA: EKG is sinus rhythm, left ventricular hypertrophy with nonspecific ST-T changes. LABORATORY DATA: Hemoglobin 11, hematocrit 32.9. Sodium 143, potassium 4.3, BUN 15, creatinine 1.1, and blood sugar 94. Serial cardiac enzymes were noted to be negative. Total cholesterol 143, LDL 80, HDL 47. CURRENT MEDICATIONS: Aspirin 325 mg a day, Pepcid 20 mg daily, Lovenox for DVT prophylaxis, hydralazine 10 mg IV p.r.n., hydralazine 100 mg p.o. t.i.d., isosorbide mononitrate 60 mg daily, lisinopril 40 mg daily, metoprolol 100 mg daily, pravastatin 40 mg daily, ranolazine 1,000 mg daily. IMPRESSION: 1. Chest pain. Chest pain is suggestive of angina pectoris. This could very well be secondary to the stress caused by the of her sister. There is no evidence of acute myocardial injury. EKG as well as cardiac enzymes are noted to be negative. Chest pain has improved at this time. In view of her coronary artery disease, we will obtain a stress test and echocardiogram for further cardiac evaluation. 2. Coronary artery disease, PTCA x 3, once in 2007 and twice in 2011. 3. Hypertension. 4. Hyperlipidemia. 5. Status post hysterectomy. The patient will be monitored and followed closely. Thank you for allowing me to participate in the care of this pleasant lady. JOB# [id number] GERARDO/VERÓNICA
[2017-03-31] MEDS: PROzac PO SCH (11:06)
--- NOTE | 2017-03-31 11:42 | Treadmill Report ---
NUCLEAR STRESS TEST The patient is brought to the Cardiology lab and Lexiscan stress test is performed. The patient tolerated the procedure well. Post-stress images reveal fairly homogeneous distribution of the isotope with no significant reversibility to indicate ischemia. Accompanying gated study shows good systolic function with no significant wall motion abnormalities. Calculated ejection fraction is noted to be 67%. IMPRESSION: Nuclear stress test is negative for significant reversible defects to indicate ischemia. No wall motion abnormalities are noted. Ejection fraction is calculated to be 67%. Suggest clinical correlation. JOB# [id number] KBM/NTS
--- NOTE | 2017-03-31 11:48 | Discharge Summary ---
Providers - Providers Date of Admission: 03/29/17 01:08 Date of discharge: 03/31/17 Attending physician: CRUZITO KENNEY 03/29/17 Consult to Cardiac Rehabilitation [CONS] Routine Reason For Exam: Phase I 03/29/17 01:08 Consult to Physician [CONS] Routine Consulting Provider: MARITZA TAVAREZ Reason For Exam: chest pain Place consult to:: Notified:: Phone number called:: [phone] Was contact made?: Yes If yes, spoke with:: RHODA Time called:: 08:22 Comment:: LUX Primary care physician: GOYO LATIF Hospitalization Condition: Stable Hospital course: Patient is a 71-year-old woman with history of coronary artery disease status post stent, CKD3 and hypertension who presented with chest pain are learning of her sister's . -Chest pain, most likely stable angina: Cardiology is following -Accelerated hypertension: Cardiology added Norvasc, prn hydralazine iv -Hypomagnesemia: replace -CKD 3, stable -Stress/Grief Rxn: will give temp anxiety meds Disposition: DC-01 TO HOME OR SELFCARE Time spent for discharge: 36 minutes Core Measure Documentation - Palliative Care Palliative Care/ Comfort Measures: Not Applicable - Core Measures Any of the following diagnoses?: none - VTE Discharge Requirements Deep Vein Thrombosis/Pulmonary Embolism Present on Admission: No Has pt received <5 days of overlap therapy or INR<2.0: No Anticoagulant overlap therapy prescribed at discharge: No Contraindication No Overlap Therapy order at DC: Not Indicated Exam - Physical Exam Narrative exam: GEN: WDWN, NAD, AWAKE, ALERT, ORIENTATED 3 HEENT: NCAT, EOMI, PERRL, OP Clear NECK: supple, no adenopathy, no thyromegaly, no JVD CVS/HEART: RRR, NORMAL S1S2, NO JVD, pulses present bilaterally CHEST/LUNGS: CTA B, Symmetrical chest expansion, good air entry bilaterally GI/Abdomen: soft, NTND, good bowel sounds, no guarding or rebound /Bladder: no suprapubic tenderness, no CVA or paraspinal tenderness EXT/Skin: no c/c/e, no obvious rash MSK: FROM x 4 Neuro: CN 2-12 grossly intact, no new focal deficits Psych: calm - Constitutional Vitals: Temp Pulse Resp BP Pulse Ox 97.9 F 68 18 190/72 98 03/31/17 08:17 03/31/17 09:03 03/31/17 08:17 03/31/17 09:03 03/31/17 08:17 Plan Activity: other (no strenous activity until cleared by your doctors) Diet: low salt Special Instructions: record daily BP diary (Call [place] doctor if systolic blood pressure (top number) is 200 or greater) Follow up with: GOYO LATIF MD [Primary Care Provider] - 3-5 Days Prescriptions: amLODIPine [Norvasc] 10 mg PO QDAY #30 tablet
--- NOTE | 2017-03-31 15:26 | Progress Note ---
Assessment and Plan Patient is known to have coronary artery disease and had previous stent placement. She is admitted with chest discomfort and the uncontrolled hypertension. Chest pain has improved. Patient underwent a nuclear stress test today which showed normal left ventricular function and there is no evidence of ischemia. Blood pressure is improving gradually. Continue current management. Discharge planning per Dr. Paez. - Patient Problems (1) Uncontrolled hypertension Current Visit: Yes Status: Acute (2) Unstable angina Current Visit: Yes Status: Acute Subjective Date of service: 03/31/17 Interval history: Patient is feeling better today. No significant chest pain or difficulty breathing. Objective Vital Signs Temp Pulse Pulse Resp BP BP Pulse Ox 03/31/17 13:00 68 03/31/17 10:00 98 03/31/17 09:03 68 190/72 03/31/17 09:01 68 190/72 03/31/17 09:00 68 190/72 03/31/17 08:17 97.9 F 69 18 202/77 98 03/31/17 05:00 99.3 F 67 18 181/71 98 03/31/17 01:00 18 03/30/17 22:00 73 03/30/17 20:17 98.9 F 73 18 144/51 96 03/30/17 15:47 75 177/76 03/30/17 15:25 75 177/76 - Physical Examination General: Appears Well HEENT: Positive: PERRL Neck: Positive: neck supple Cardiac: Positive: Reg Rate and Rhythm Lungs: Positive: clear to auscultation Neuro: Positive: Grossly Intact Abdomen: Positive: Soft Skin: Positive: Clear Extremities: Present: normal
[2017-03-31 15:36] VITALS: BP 139/56
== END 2017-03-31 14:55 | disposition home or self-care (01) ==
LOC: ED 18:06 → 2B-ACE 03-29 01:08
PROVIDERS: ADMIT Internal Medicine Geriatric Medicine; ATTEND Internal Medicine
DX: R07.89 Other chest pain (principal); E83.42 Hypomagnesemia; I12.9 Hypertensive chronic kidney disease with stage 1 through stage 4 chronic kidney disease, or unspecified chronic kidney disease; N18.3 Chronic kidney disease, stage 3 (moderate); I25.10 Atherosclerotic heart disease of native coronary artery without angina pectoris; Z98.61 Coronary angioplasty status; Z23 Encounter for immunization
CPT/HCPCS: 36415; 71010; 78452; 80048; 80053; 80061; 82550; 82553; 82962; 83036; 83735; 84100; 84484; 85007; 85025; 90732; 93005; 93010; 93017; 93306; 96361; 96365; 96366; 96372; 96375; 96376; 99285; A9270; A9502; G0008; G0378; J0360; J1650; J1885; J2270; J2405; J2785; J3475; J7030; 90471